=== PATIENT | female | born 1975 | race Caucasian/White ===

== ENCOUNTER 2016-10-21 22:24 | Emergency (ER) | payer OTHER ==
[~2016-10-21] VITALS: Ht 152.4 cm; Wt 98.0 kg
[2016-10-21 22:45] VITALS: BP 146/90
--- NOTE | 2016-10-21 23:31 | NUR ---
PT TAKEN TO CT FROM [facility]
--- NOTE | 2016-10-22 00:17 | NUR ---
PT TAKEN TO OF
--- NOTE | 2016-10-22 00:28 | NUR ---
PT MOVED TO BED 8
--- NOTE | 2016-10-22 00:28 | NUR ---
PATIENT PRESENTS TO ED WITH NEAR SYNCOPE, HALF HOUR AGO, 15 SECONDS . PT DENIES N/V/D; SKIN IS PINK/WARM/DRY; AAOX4 WITH EVEN AND STEADY GAIT; LUNGS CLEAR BL; HR EVEN AND REGULAR; PT DENIES ANY FEVER, CP, SOB, OR COUGH AT THIS TIME; PATIENT STATES PAIN OF 5/10 AT THIS TIME; VSS; PATIENT POSITIONED FOR COMFORT; HOB ELEVATED; BEDRAILS UP X2; BED DOWN. ER MD MADE AWARE OF PT STATUS.
--- NOTE | 2016-10-22 00:49 | NUR ---
Dr. Jackson evaluating patient at bedside.
[2016-10-22] MEDS ORDERED: NACL 0.9% 1,000 ML IV ONE (00:55)
[2016-10-22] MEDS ORDERED: KETOROLAC 30 MG/ML VIAL IVP ONE (00:55)
[2016-10-22 01:32] LABS: ANION GAP 11.8 (8-16); CALCIUM 8.6 mg/dL (8.5-10.1); CARBON DIOXIDE 27.6 mmol/L (21-32); CREATININE 0.8 mg/dL (0.6-1.3); POTASSIUM 4.4 mmol/L (3.5-5.1)
[2016-10-22 01:37] LABS: ALBUMIN 3.2 g/dL (3.4-5.0); BASOPHILS # (AUTO) 0.1 K/uL (0.00-0.22); BASOPHILS % (AUTO) 0.9 % (0.0-2.0); EOSINOPHILS # (AUTO) 0.3 K/uL (0-0.4); HEMATOCRIT 26.5 % (36-48); HEMOGLOBIN 8.2 g/dL (12.0-16.0); LYMPHOCYTES # (AUTO) 1.5 K/uL (2.5-16.5); MEAN CORPUSCULAR HEMOGLOBIN 25 pg (27-31); MEAN CORPUSCULAR HGB CONC 31 g/dL (33-37); MEAN CORPUSCULAR VOLUME 80 fL (80-94); MONOCYTES # (AUTO) 0.5 K/uL (0.8-1.0); MONOCYTES % (AUTO) 6.5 % (1.7-9.3); NEUTROPHILS # (AUTO) 5.6 K/uL (1.8-7.7); NEUTROPHILS % (AUTO) 69.6 % (42.2-75.2); PLATELET COUNT (AUTO) 285 K/uL (140-450); RED BLOOD CELL COUNT(AUTO) 3.29 MIL/uL (4.20-5.40); TOTAL BILIRUBIN 0.3 mg/dL (0.0-1.0); TOTAL PROTEIN, SERUM 7.7 g/dL (6.4-8.2); WHITE BLOOD COUNT (AUTO) 7.9 K/uL (4.8-10.8)
[2016-10-22 02:32] VITALS: BP 128/75
== END 2016-10-22 02:32 | disposition home or self-care (01) ==
LOC: MED 22:24
DX: N93.8 Other specified abnormal uterine and vaginal bleeding (principal); D64.9 Anemia, unspecified; R03.0 Elevated blood-pressure reading, without diagnosis of hypertension; J45.909 Unspecified asthma, uncomplicated; Z88.0 Allergy status to penicillin
CPT/HCPCS: 36415; 70450; 80053; 85025; 93005; 96361; 96374; 99285; J1885; J7030